=== PATIENT | female | born 1975 | race Caucasian/White ===

== ENCOUNTER 2020-08-27 19:04 | Emergency (ER) | payer OTHER, BC ==
[~2020-08-27] VITALS: Ht 157.5 cm; Wt 60.3 kg
[2020-08-27 19:13] VITALS: Ht 157.5 cm; Wt 60.3 kg
[2020-08-27 21:03] VITALS: BP 144/90
== END 2020-08-27 21:03 | disposition home or self-care (01) ==
LOC: ED 19:04
DX: S16.1XXA Strain of muscle, fascia and tendon at neck level, initial encounter (principal); R51.9 Headache, unspecified; X58.XXXA Exposure to other specified factors, initial encounter; Y93.89 Activity, other specified; Y92.89 Other specified places as the place of occurrence of the external cause; Y99.8 Other external cause status
CPT/HCPCS: Q0162